=== PATIENT | male | born 1975 | race Caucasian/White ===

== ENCOUNTER 2021-04-02 12:31 | Emergency (ER) | payer OTHER ==
[2021-04-02 12:51] LABS: BASOPHIL 1.1 % (0-2); EOSINOPHIL 4.1 % (0-5); HCT 51.5 % (42.0-52.0); HGB 16.4 g/dl (13.2-18.0); LYMPHOCYTE 27.9 % (15-48); MCH 28.2 pg (25.0-31.0); MCHC 31.8 g/dL (32.0-36.0); MCV 88.6 fL (78.0-100.0); MONOCYTE 6.2 % (0-12); MPV 9.9 fL (6.0-9.5); NEUTROPHIL 60.4 % (41-80); NRBC 0; PLT 264 K/uL (150-400); RBC 5.81 M/uL (4.70-6.00); RDW 13.6 % (11.5-14.0); WBC 7.6 K/uL (4.0-10.5)
[2021-04-02 13:03] LABS: INR 1.05 (0.9-1.2); PROTHROMBIN TIME 13.1 SECONDS (11.8-13.4); PTT 29.2 SECONDS (24.4-34.7)
[2021-04-02 13:41] LABS: ALBUMIN 3.5 g/dL (3.4-5.0); BILIRUBIN - TOTAL 0.2 mg/dL (0.2-1.0); BUN/CREAT RATIO (CALC) 12.2 RATIO; CREATININE 0.74 mg/dL (0.67-1.17); GLOBULIN (CALCULATION) 3.5 g/dL; POTASSIUM 4.3 mmol/L (3.5-5.1)
[2021-04-02] MEDS ORDERED: NITROQUIK SL0.4 MG SL (17:49)
== END 2021-04-02 18:16 | disposition home or self-care (01) ==
LOC: FER 12:31
PROVIDERS: Emergency Medicine
DX: R07.89 Other chest pain (principal); F17.200 Nicotine dependence, unspecified, uncomplicated; Z88.6 Allergy status to analgesic agent
CPT/HCPCS: 36415; 71045; 80053; 84484; 85025; 85610; 85730; 93005

== ENCOUNTER 2021-04-10 05:15 | Emergency (ER) | payer OTHER ==
[~2021-04-10 05:15] MED LIST: NITROQUIK SL0.4 MG SL
[2021-04-10] MEDS ORDERED: ARTIFICIAL TEA1 EACH EYEBOTH (05:53)
== END 2021-04-10 06:00 | disposition home or self-care (01) ==
LOC: FER 05:15
DX: H18.823 Corneal disorder due to contact lens, bilateral (principal); F17.200 Nicotine dependence, unspecified, uncomplicated; Z88.6 Allergy status to analgesic agent
CPT/HCPCS: 99283

== ENCOUNTER 2021-10-04 17:18 | Emergency (ER) | payer OTHER ==
[~2021-10-04 17:18] MED LIST changes: +ARTIFICIAL TEA1 EACH EYEBOTH
[2021-10-04 18:22] LABS: BASOPHIL 0.4 % (0-2); EOSINOPHIL 1.4 % (0-5); HCT 53.1 % (42.0-52.0); HGB 18.1 g/dl (13.2-18.0); LYMPHOCYTE 4.2 % (15-48); MCHC 34.1 g/dL (32.0-36.0); MONOCYTE 4.7 % (0-12); MPV 9.6 fL (6.0-9.5); NRBC 0; PLT 338 K/uL (150-400); RBC 6.25 M/uL (4.70-6.00); RDW 13.3 % (11.5-14.0); WBC 18.3 K/uL (4.0-10.5)
[2021-10-04 18:42] LABS: ALBUMIN 5.2 g/dL (3.4-5.0); BILIRUBIN - TOTAL 0.7 mg/dL (0.2-1.0); BUN/CREAT RATIO (CALC) 10.9 RATIO; CREATININE 1.1 mg/dL (0.67-1.17); GLOBULIN (CALCULATION) 4.6 g/dL; POTASSIUM 3.8 mmol/L (3.5-5.1); TOTAL PROTEIN 9.8 g/dL (6.4-8.2)
[2021-10-04 19:19] LABS: LACTIC ACID 1.6 mmol/L (0.4-1.9)
[2021-10-04 19:51] LABS: BILIRUBIN NEGATIVE (NEGATIVE); BLOOD NEGATIVE Ery/uL (NEGATIVE); CLARITY CLEAR (CLEAR); COLOR YELLOW (YELLOW); GLUCOSE (U) NORMAL (NORMAL); LEUKOCYTES NEGATIVE Leu/uL (NEGATIVE); NITRITE NEGATIVE (NEGATIVE); PROTEIN 1+ mg/dL (NEGATIVE); SPECIFIC GRAVITY 1.025 (1.001-1.030); UROBILINOGEN 0.2 mg/dL (0.2-1.0)
[2021-10-04 19:59] LABS: ECSTASY (MDMA) POSITIVE (NEGATIVE); MARIJUANA (THC) POSITIVE (NEGATIVE)
[2021-10-04 20:00] LABS: AMPHETAMINES POSITIVE (NEGATIVE); BARBITURATES NEGATIVE (NEGATIVE); METHADONE NEGATIVE (NEGATIVE); OPIATES POSITIVE (NEGATIVE); OXYCODONE NEGATIVE (NEGATIVE)
[2021-10-04 20:07] LABS: AMORPHOUS URATES CRYSTALS TRACE; BACTERIA TRACE; MUCOUS TRACE
[2021-10-04] MEDS ORDERED: ONDANSETRON HCL4 MG PO (20:10)
[2021-10-04] MEDS ORDERED: BENTYL10 MG PO (20:10)
== END 2021-10-04 20:36 | disposition home or self-care (01) ==
LOC: FER 17:18
PROVIDERS: Nurse Practitioner Family
DX: K52.9 Noninfective gastroenteritis and colitis, unspecified (principal); I10 Essential (primary) hypertension; Z88.6 Allergy status to analgesic agent; Z79.899 Other long term (current) drug therapy
CPT/HCPCS: 36415; 80053; 80305; 81001; 82150; 83605; 83690; 84145; 85025; 87040; J2270; J2405; J7030; Q0162; Q9967

== ENCOUNTER → 2022-01-12 | Emergency (ER) | payer OTHER ==
[~2022-01-12] MED LIST changes: +AMOX TR-K CLV1 EAC4 PO; +BENTYL10 MG PO; +ONDANSETRON HCL4 MG PO
== END | disposition home or self-care (01) ==
LOC: FER 23:38
DX: K02.9 Dental caries, unspecified (principal); I10 Essential (primary) hypertension; Z88.6 Allergy status to analgesic agent; Z28.310 Unvaccinated for COVID-19
CPT/HCPCS: J1885; Q0163